=== PATIENT | female | born 1995 | race Asian ===

== ENCOUNTER → 2021-03-02 16:12 | Outpatient (CLI) | payer OTHER, MEDICAID, SELFPAY | PROVIDERS: Referring Provider Obstetrics & Gynecology; Visit Provider Obstetrics & Gynecology | DX: Z34.82 Encounter for supervision of other normal pregnancy, second trimester (principal) | CPT/HCPCS: 36415; 86850 ==

== ENCOUNTER → 2021-04-04 15:53 | Outpatient (CLI) | payer OTHER, MEDICAID, SELFPAY ==
--- NOTE | 2021-04-04 15:54 | DI.US.S_ITS ---
PROCEDURE: US OB >= 14 WEEKS FETUS INDICATIONS: ANATOMY SCAN. OUTSIDE/PRIOR DATING DATA: Last menstrual period (LMP): Not known LMP-based estimated date of delivery (HDEERAJ): Not known. First dating scan (date and location): 02/13/2021. Estimated date of delivery (DHEERAJ) from first dating scan: 08/16/2021. TECHNIQUE: Real-time scanning was performed of the fetus, with image documentation and biometric measurements. COMPARISON: , , OB < 14 WEEKS, 02/13/2021, 17:58. FINDINGS: General: A single living intrauterine gestation is present. Presentation: Variable Placenta: Placental position is anterior, without previa. Amniotic fluid index: 12.9 cm, normal range is 5-24 cm. heart rate: 147 beats per minute. Maternal cervical canal: 4.6 cm long. Normal lower limit is 2.5 cm. biometrics: Biparietal diameter: 4.8 cm, 20 weeks, 4 days Head circumference: 18 cm, 20 weeks, 4 days Abdominal circumference: 15.6 cm, 20 weeks, 5 days Femur length: 3.4 cm, 20 weeks, 5 days Estimated gestational age from initial scan: 20 weeks, 6 days Composite gestational age from present scan: 20 weeks, 4 days Estimated weight and percentile: 369 gram, 35 percent Measurement variability for biometric dating: +/- 7 days from 14 weeks to 15 weeks 6 days gestation, +/- 10 days from 16 weeks to 21 weeks 6 days gestation, +/- 2 weeks from 22 weeks to 27 weeks 6 days gestation, +/- 3 weeks for 28 weeks gestation or later. weight reference: 4500 g or EFW >90/95% is considered macrosomia or large for gestational age. EFW <10% is small for gestational age. EFW 5% or less is considered intra-uterine growth restriction. Anatomic survey: Neuro: Ventricles are non-dilated at less than 10 mm. Cisterna magna is normal at 3-11 mm. Cerebellum is normal in size and morphology. Nuchal skin fold: Normal at less than 6 mm between 14-21 weeks gestational age. Face: Nose and lips, facial profile are normal. Spine: No evidence for spina bifida. Heart: 4-chambered heart is present, with normal ventricular outflow tracts. Diaphragm: Diaphragm is intact. Stomach: Left-sided stomach is present. Kidneys: No hydronephrosis. Normal is less than 5 mm in 2nd trimester, less than 7 mm in 3rd trimester. Cord: 3-vessel cord has orthotopic insertion. Bladder: Normal in size. Extremities: All 4 extremities identified. IMPRESSION: 1. Single live intrauterine with fetus in variable presentation. heart rate is 147 beats per minute. Normal amount of amniotic fluid. Normal growth. Estimated weight is at 35 percent. 2. Normal anatomic survey. Dictated by: Navneet Farfan M.D. on 04/04/2021 at 17:44 Approved by: Navneet Farfan M.D. on 04/04/2021 at 17:47
== END ==
PROVIDERS: Referring Provider Obstetrics & Gynecology; Visit Provider Obstetrics & Gynecology
DX: Z34.90 Encounter for supervision of normal pregnancy, unspecified, unspecified trimester (principal); Z3A.20 20 weeks gestation of pregnancy
CPT/HCPCS: 76811

== ENCOUNTER → 2021-05-16 13:30 | Outpatient (CLI) | payer OTHER, MEDICAID, SELFPAY ==
[2021-05-16 15:31] LABS: Hematocrit 34.5 % (36-46); Hemoglobin 11.6 g/dL (12.0-16.0)
[2021-05-16 17:10] LABS: GTT (PREG) 1 Hour PP 50gm Dose 114 mg/dL (76-139)
== END ==
PROVIDERS: Referring Provider Obstetrics & Gynecology; Visit Provider Obstetrics & Gynecology
DX: Z34.82 Encounter for supervision of other normal pregnancy, second trimester (principal); Z3A.25 25 weeks gestation of pregnancy
CPT/HCPCS: 36415; 82950; 85014; 85018

== ENCOUNTER → 2021-07-20 16:16 | Outpatient (CLI) | payer OTHER, MEDICAID, SELFPAY ==
[2021-07-21 18:28] LABS: Strep Grp B PCR NEG for Grp B Strep
== END ==
PROVIDERS: Visit Provider Obstetrics & Gynecology
DX: Z34.03 Encounter for supervision of normal first pregnancy, third trimester (principal); Z3A.36 36 weeks gestation of pregnancy
CPT/HCPCS: 87653

== ENCOUNTER → 2021-07-30 14:12 | Outpatient (CLI) | payer OTHER, MEDICAID, SELFPAY ==
[2021-07-30 14:40] LABS: COVID19 -Nasal RAPID Negative (Negative)
== END ==
PROVIDERS: Referring Provider Physician Assistant; Visit Provider Physician Assistant
DX: Z20.822 Contact with and (suspected) exposure to COVID-19 (principal)
CPT/HCPCS: 87635

== ENCOUNTER 2021-08-11 20:36 | Inpatient (IN) | payer OTHER, MEDICAID, SELFPAY ==
[2021-08-11 20:59] VITALS: BP 125/72
--- NOTE | 2021-08-11 21:34 | PM.OBHP.1 ---
OB HPI Date/Time Date of admission: 08/11/21 Date Patient Seen: 08/11/21 Time Patient Seen: 21:40 History of Present Condition Chief complaint: OBSERVATION : 2 Para: 1 Estimated Date of Delivery: 08/16/21 Estimated Gestational Age (weeks): 39+2 Narrative: Vernell Cantrell is a 26 year old DHEERAJ 08/16/2021 at 39+ 2 weeks gestational age who presents this evening with spontaneous rupture membranes at 6:00 p.m. She has a history of prior section and is scheduled for repeat section on08/16/2021. Her course is largely been uneventful but she has a history of gestational hypertension with her 1st . She is normotensive now and has been throughout her . Patient is GBS negative. Patient declined genetic testing and quad screen. Initial antibody screen at [facility] was positive for an unidentifiable antibody but subsequent testing showed no antibody was present. Last p.o. intake was at 5:00 p.m. consisting of half piece of pizza and some water. Her placenta is reported to be anterior without previa. Indications Operative indications ( section): previous uterine surgery History of Present care: good care Dating criteria: LMP confirmed by 1st trimester US Ultrasounds: normal 1st trimester US and normal mid trimester US Obstetrical complications: none Medical complications: none Preadmission Labs Blood type: B (+) positive -: Antibody screen: negative, GBS status: negative, HBsAG: negative, HIV: negative and RPR/VDLR: negative -: Chlamydia screen: not detected and Gonorrhea screen: not detected -: Rubella: immune and Varicella: immune HCT: 34.5 HCAB: negative PAP: Normal Cell-free DNA: Declined 1 hr GTT: 114 Prior (ies) History: Prior , history of gestational hypertension with 1st Evaluation Evaluation Baseline heart rate: 125 Variability: Moderate (11-25) monitor accelerations: Present Monitor Decelerations: Absent Category of Tracing: Reactive Status: Category l Non-invasive Membranes Rupture Test: positive Comments: Cervix not evaluated [facility] Medical History Carpal tunnel syndrome of right wrist Gestational hypertension affecting first (~2019) History of gestational hypertension UTI (urinary tract infection) Surgical History History of delivery, currently [employer] [place] teeth extracted (~10/2020) Family History Mother Hypertension Father Cancer Hypertension Grandmother Diabetes mellitus Hypertension Grandfather Lung cancer Smoker Grandmother Medical history unknown Grandfather Medical history unknown Social History marital status: number of children: 1 household members: spouse and children lives independently: Yes caregiver/support person: No housing: house pets and animals: Yes (2 big dogs: safe.) 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 ) special brittany needs: No seatbelt use: always do you feel safe at home: Yes Smoking Status: Never smoker second hand exposure: No alcohol intake: never substance use type: does not use during the past year weight has: remained stable well-balanced diet: daily or most days daily servings fruits/ve-4 (2+) caffeine: Yes (Coffee, 1 cup daily. Trying to switch to matcha. ) Type(s) of exercise: normal ROM and activity (Very busy, always outside moving, busy toddler, working.) frequency: daily duration: other Meds Home Medications and Allergies Home Medications Medication Instructions Recorded Confirmed Type prenat.vits,yaron,jet-[id number] 1 tab PO DAILY 03/02/21 08/11/21 History Allergies Allergy/AdvReac Type Severity Reaction Status Date / Time No Known Drug Allergies Allergy Verified 03/02/21 10:10 Review of Systems Review of Systems Narrative: Problem-specific ROS positives included in HPI OB Exam HENMT Head: normal to inspection Mouth: oral mucosae normal Eyes General: appearance normal, both eyes and all related structures Resp Effort & Inspection: normal respiratory effort and able to speak in complete sentences Auscultation: clear to auscultation bilaterally Cardio Rate: regular rate Rhythm: regular rhythm Heart Sounds: S1 normal, S2 normal and no murmurs GI Inspection: normal to inspection and other (Gravid) Palpation: soft and no hepatosplenomegaly External Female Exam: Yes normal external appearance Uterus Location (Fundal Height): 36 Presentation: vertex Estimated Weight (lbs): 8 Amniotic Fluid: clear Assessment and Plan Assessment and Plan Assessment and Plan narrative: ASSESSMENT 1. Intrauterine gestation, Donald, vertex, 39+ 2 weeks gestational age 2. History of prior section for repeat delivery PLAN 1. Admit for repeat section 2. See admission orders 3. Patient counseled regarding alternatives, risks, benefits, and potential complications associated with repeat section. With full understanding of the above, a written consent was executed, signed, and witnessed this date. Time Spent with Patient Total time spent with greater than 50% in coordination of care (as documented) at patient's floor/unit and/or counseling patient:: 15-24 minutes
[2021-08-11 21:49] LABS: COVID19 -Nasal RAPID Negative (Negative)
[2021-08-11 22:11] LABS: Add Manual Diff / Slide Review NO; Basophils Absolute Auto 0 /uL (0-100); Basophils Percent Auto 0.3 % (0-2); Eosinophils Absolute Auto 100 /uL (0-450); Eosinophils Percent Auto 0.6 % (2-4); Hematocrit 38.8 % (36-46); Hemoglobin 12.9 g/dL (12.0-16.0); Lymphocytes Absolute Auto 2400 /uL (1100-4500); Lymphocytes Percent Auto 19.2 % (25-40); Mean Corpuscular HGB Conc 33.1 % (30-36); Mean Corpuscular Hemoglobin 28.8 PG (26-34); Mean Corpuscular Volume 86.9 fL (80-100); Monocytes Absolute Auto 900 /uL (0-900); Neutrophils Absolute Auto 8900 /uL (1500-7000); Neutrophils Percent Auto 72.9 % (50-75); Platelet Count 343 X10^3/uL (150-400); Red Blood Cell Count 4.46 X10^6/uL (4.0-5.2); White Blood Cell Count 12.3 X10^3/uL (4.5-11.0)
--- NOTE | 2021-08-11 22:31 | PM.PREOP ---
Pre-operative Note COVID-19 COVID-19 status: Negative Result date/Date tested (Pos, Neg/Pending): 08/11/21 Criteria for continued procedure: Non-surgical alternatives not available or appropriate per current SOC Interval Note History & Physical reviewed/Exam performed by Physician: Yes Changes to H&P: No
--- NOTE | 2021-08-11 22:35 | PM.OBCS.1 ---
Operative Date/Time/Diagnoses Date of procedure: 08/11/21 Time of procedure: 23:00 Pre-op diagnosis: Intrauterine , 39+2 weeks EGA Prior section PROM Post-op diagnosis: same Procedure & Clinicians Procedure: Repeat section (Low Transverse Cervical) Same procedure as scheduled: Yes Indications: Vernell Cantrell is a 26 year old DHEERAJ 08/16/2021 at 39+ 2 weeks gestational age who presents this evening with spontaneous rupture membranes at 6:00 p.m. She has a history of prior section and is scheduled for repeat section on08/16/2021.? Her course is largely been uneventful but she has a history of gestational hypertension with her 1st .? She is normotensive now and has been throughout her .? Patient is GBS negative.? Patient declined genetic testing and quad screen.? Initial antibody screen at [facility] was positive for an unidentifiable antibody but subsequent testing showed no antibody was present.? Last p.o. intake was at 5:00 p.m. consisting of half piece of pizza and some water.? Her placenta is reported to be anterior without previa. Surgeon: Colby Woods Local Hazmat Driver: Mateusz Chi Reason for Local Hazmat Driver: Local Hazmat Driver required for retraction and the the safe, timely performance of the surgery Anesthesia Type: Spinal Operative Notes Findings: Viable , Apgars / , BW Closure Type: primary Specimen(s): cord blood Intraoperative meds administered: Pitocin Applied: Catheter Estimated Blood Loss (mL): 800 Blood products transfused: none Procedure in detail: With the patient under satisfactory spinal block anesthesia in the dorsal supine position, the abdomen was prepped and draped in the usual fashion for after placement of a Carrasco catheter. Pre-surgical safety time-out then taken in accordance with [facility] OR protocols. Once adequate spinal anesthesia was assured, the old Pfannenstiel scar was excised as a cicatrix and the dissection carried through the subcutaneous tissues to the fascia which was incised transversely. The fascia was then undermined cephalad and caudad with the rectus abdomini both bluntly and sharply. The abdomen was entered sharply with Metzenbaum scissors and the lower uterine segment exposed. A bladder flap was then created with that transverse incision using Metzenbaum scissors and the bladder was mobilized downward. Hysterotomy was then performed sharply and the amniotic cavity entered atraumatically. The incision was extended with digital traction and the male , Apgars 9/9, BW 3617 gms. (7# 15.6 oz.), delivered from the vertex presentation without difficulty. Cord around the neck x1 was noted. Delayed cord clamping was performed and after 60 seconds the cord was clamped and cut with cord blood submitted for routine studies. The placenta was removed with gentle cord traction and massage of the fundus. Placenta was intact and the endometrial cavity was empty as demonstrated by expiration with wet lap. The uterine incision was then closed with #1 chromic catgut suture in a running interlocking stitch followed by a 2nd layer of #1 Chromic in a running interlocking imbricating stitch. Hemostasis was excellent and uterus was firm with the administration of IV Pitocin. The anterior peritoneum was then closed with 2-0 Vicryl in a running stitch and the fascia was closed with #1 Vicryl in a running stitch initiated at both angles and tying separately near the midline. The subcutaneous tissues were then reapproximated with 2-0 Vicryl in a running stitch and the skin edges were brought together with 4-0 Monocryl using a subcuticular closure. Steri-Strips were applied followed by placement of an Aquasol dressing. Patient was then transferred to the PACU for a period of recovery having tolerated the procedure well. Complications: none Baby 1: Infant Gender: Male Presentation: vertex Position: Left Occiput Anterior Placental Delivery Description: Expressed Cord Vessel Description: 3 Vessels score (1 min): 9 score (5 min): 9 weight: 7 lb 15.586 oz Post-operative Condition: stable Disposition: PACU Aftercare: routine postop
[2021-08-11] MEDS: CEFAZOLIN 2 GM/20 ML SYRINGE IV (22:56)
--- NOTE | 2021-08-11 23:01 | SUR.OPER ---
Supine on Padded OR bed, head on pillow, safety belt at thigh, arms secured on padded arm boards at <90 degrees abduction. Bump under right buttock. Legs uncrossed with pillow under knees, gel pad to heels, tape over blanket to lower legs.
--- NOTE | 2021-08-11 23:05 | SUR.OPER ---
FHT's 154. Cord blood x 2 and placenta to OB with OB RN.
[2021-08-11] MEDS: LACTATED RINGERS 1,000 ML 100 ML IV (23:12)
--- NOTE | 2021-08-11 23:19 | SUR.OPER ---
TOB live male @ [id number].
--- NOTE | 2021-08-11 23:28 | SUR.OPER ---
All intra-op charting done by Alesia Killian RN. Could not log on to the computer. Janis Nava RN present during entire surgery.
[2021-08-12 00:06] VITALS: BP 116/64; PULSE 75; RESP 16; TEMP 36.6; O2SAT 96
[2021-08-12 00:11] VITALS: BP 113/63; PULSE 75; RESP 16; O2SAT 96
[2021-08-12 00:16] VITALS: BP 108/54; PULSE 71; RESP 16; TEMP 36.3; O2SAT 97
[2021-08-12 00:23] VITALS: BP 99/54; PULSE 79; RESP 16; O2SAT 97
[2021-08-12] MEDS: ONDANSETRON 8 MG in SODIUM CHLORIDE 0.9% 100 ML 208 MG IV (01:26)
[2021-08-12] MEDS: OXYTOCIN PREMIX 30 UNIT/500 ML PLAST..BAG 200 UNIT IV (01:29)
[2021-08-12] MEDS: LACTATED RINGERS 1,000 ML 100 ML IV (01:29)
[2021-08-12] MEDS: KETOROLAC 30 MG/ML VIAL IV ×3 (04:29→16:56)
[2021-08-12 07:56] LABS: Add Manual Diff / Slide Review NO; Basophils Absolute Auto 100 /uL (0-100); Basophils Percent Auto 0.3 % (0-2); Eosinophils Absolute Auto 0 /uL (0-450); Eosinophils Percent Auto 0.1 % (2-4); Hematocrit 33.9 % (36-46); Hemoglobin 11.1 g/dL (12.0-16.0); Lymphocytes Absolute Auto 1500 /uL (1100-4500); Lymphocytes Percent Auto 7.7 % (25-40); Mean Corpuscular HGB Conc 32.9 % (30-36); Mean Corpuscular Hemoglobin 28.2 PG (26-34); Mean Corpuscular Volume 85.6 fL (80-100); Monocytes Absolute Auto 1000 /uL (0-900); Monocytes Percent Auto 4.8 % (3-14); Neutrophils Absolute Auto 17500 /uL (1500-7000); Neutrophils Percent Auto 87.1 % (50-75); Platelet Count 339 X10^3/uL (150-400); Red Blood Cell Count 3.95 X10^6/uL (4.0-5.2); Red Cell Distribution Width 12.6 % (11.6-14.8); White Blood Cell Count 20.1 X10^3/uL (4.5-11.0)
[2021-08-12] MEDS: METOCLOPRAMIDE 10 MG/2 ML INJ IV (08:00)
--- NOTE | 2021-08-12 11:50 | P.PNOB_ITS ---
Subjective - OB Subjective Patient comments: no complaints, pain well controlled, tolerating diet and other (Moderate nausea relieved with Reglan; Zofran ineffective); no flatus present [place] baby status: doing well [place] feeding status: exclusively breast feeding Date Patient Seen: 08/12/21 Time Patient Seen: 11:51 Interval history: Overnight following her , the patient has done extremely well but did have significant nausea and vomiting initially unrelieved with Zofran. She is now doing much better, is ambulating independently, voiding without difficulty, and tolerating a reasonable amount of food/liquids PO. Exam Vital Signs (past 8 hours): Oxygen Delivery Method Room Air Const General: cooperative and comfortable Nutritional Appearance: average body habitus Orientation: alert and oriented x3 HENMT Head: normal to inspection Eyes General: appearance normal, both eyes and all related structures Neck Neck: normal visual inspection Resp Effort & Inspection: normal respiratory effort and able to speak in complete sentences Auscultation: clear to auscultation bilaterally Cardio Rate: regular rate Rhythm: regular rhythm Heart Sounds: S1 normal, S2 normal and no murmurs GI Inspection: normal to inspection and incision (Dressing clean and dry) Palpation: soft, no hepatosplenomegaly, mass (Fundus U -2) and tender (Mild, diffuse, normal/expected postsurgical tenderness) Auscultation: normal bowel sounds Extrem General: normal to inspection and no calf tenderness Psych Appearance: grossly normal Mental Status: mental status grossly normal Speech and Movement: speech and movement normal Mood: congruent mood Affect: normal affect Attitude: cooperative Thought Process: normal Thought Content: normal Judgment: judgment good Objective Labs Result Diagrams: 08/12/21 07:45 Labs: Laboratory Results - last 24 hr 08/11/21 08/11/21 08/11/21 21:30 21:45 21:45 WBC 12.3 H RBC 4.46 Hgb 12.9 Hct 38.8 MCV 86.9 MCH 28.8 MCHC 33.1 RDW 13.0 Plt Count 343 Neut % (Auto) 72.9 Lymph % (Auto) 19.2 L [place] % (Auto) 7.0 Eos % (Auto) 0.6 L Baso % (Auto) 0.3 Neut # (Auto) 8900 H Lymph # (Auto) 2400 [place] # (Auto) 900 Eos # (Auto) 100 Baso # (Auto) 0 SARS-CoV-2 (PCR) Negative Blood Type B Positive Antibody Screen Negative 08/12/21 07:45 WBC 20.1 H D RBC 3.95 L Hgb 11.1 L Hct 33.9 L MCV 85.6 MCH 28.2 MCHC 32.9 RDW 12.6 Plt Count 339 Neut % (Auto) 87.1 H Lymph % (Auto) 7.7 L [place] % (Auto) 4.8 Eos % (Auto) 0.1 L Baso % (Auto) 0.3 Neut # (Auto) 61520 H Lymph # (Auto) 1500 [place] # (Auto) 1000 H Eos # (Auto) 0 Baso # (Auto) 100 SARS-CoV-2 (PCR) Blood Type Antibody Screen Assessment & Plan Plan day: 1 plan OB: routine postop care Time Spent With Patient Time: Total time spent is greater than 50% in coordination of care (as documented) at patient's floor/unit and/or counseling patient: Time with patient: less than 15 minutes
[2021-08-12] MEDS: IBUPROFEN 600 MG TABLET PO (23:47)
[2021-08-13 07:00] VITALS: BP 111/64; PULSE 80; RESP 17; TEMP 36.7
--- NOTE | 2021-08-13 07:53 | PM.DS.1 ---
History of Present Illness History of Present Illness Date Patient Seen: 08/13/21 Time Patient Seen: 07:50 Chief complaint: maternity Discharge Providers Provider Date of admission: 08/11/21 20:36 Discharge Date: 08/13/21 Primary care physician: Doctor Russ MD Consults: 08/12/21 00:24 Consult to Pricing Consultant Routine Comment: Discharge provider: Colby Woods MD Summary Hospital Course Discharge Diagnosis: S/P Repeat Section Hospital Course: On the evening of 08/11/2021, the patient experienced spontaneous rupture membranes and presented to the [facility] for evaluation. After confirmation of SROM, the patient underwent a repeat section by a low transverse cervical incision productive of a male with Apgars of 9 and 9 and a weight of 7 lb 15.6 oz.. Details of the procedure itself are well summarized in my dictated operative note of that date. Following delivery the patient has done extremely well with prompt return of bowel bladder function, she is ambulating independently, tolerating regular diet, and her pain is well controlled with oral medications. She will be discharged at this time to home with medications to include Percocet 1q 4 hours as needed pain dispense 20 with no refills, ibuprofen 600 mg p.o. q.6 hours as needed pain, dispensed 60 with 2 refills, and Colace 200 mg p.o. q.d.. Prior to discharge the patient was counseled regarding precautionary symptoms, limitations of activity, medications, and follow-up which will be in 1 week for incision check at which time we will discuss contraception. Status at Discharge Cognitive/behavioral status at discharge: oriented Functional status at discharge: independent ambulation Overall status at discharge: patient is progressing back to baseline Exam Vital Signs (past 8 hours): Oxygen Delivery Method Room Air Const General: cooperative and comfortable Nutritional Appearance: average body habitus Orientation: alert and oriented x3 HENMT Head: normal to inspection Eyes General: appearance normal, both eyes and all related structures Neck Neck: normal visual inspection Resp Effort & Inspection: normal respiratory effort and able to speak in complete sentences Auscultation: clear to auscultation bilaterally Cardio Rate: regular rate Rhythm: regular rhythm Heart Sounds: S1 normal, S2 normal and no murmurs GI Inspection: normal to inspection and incision (Dressing clean and dry without staining) Palpation: soft, no hepatosplenomegaly and mass (Fundus firm, nontender, U -4 cm) External Female Exam: other (Deferred) Skin General: no rashes or lesions noted Extrem General: normal to inspection and no calf tenderness Psych Appearance: grossly normal Mental Status: mental status grossly normal Speech and Movement: speech and movement normal Mood: congruent mood Affect: normal affect Attitude: cooperative Thought Process: normal Thought Content: normal Judgment: judgment good Objective Labs Result Diagrams: 08/12/21 07:45 Labs: Laboratory Results - last 24 hr 08/12/21 07:45 WBC 20.1 H D RBC 3.95 L Hgb 11.1 L Hct 33.9 L MCV 85.6 MCH 28.2 MCHC 32.9 RDW 12.6 Plt Count 339 Neut % (Auto) 87.1 H Lymph % (Auto) 7.7 L [place] % (Auto) 4.8 Eos % (Auto) 0.1 L Baso % (Auto) 0.3 Neut # (Auto) 94906 H Lymph # (Auto) 1500 [place] # (Auto) 1000 H Eos # (Auto) 0 Baso # (Auto) 100 PFSH Medical History Carpal tunnel syndrome of right wrist Gestational hypertension affecting first (~2019) History of gestational hypertension UTI (urinary tract infection) Surgical History History of delivery, currently [place] teeth extracted (~10/2020) Family History Mother Hypertension Father Cancer Hypertension Grandmother Diabetes mellitus Hypertension Grandfather Lung cancer Smoker Grandmother Medical history unknown Grandfather Medical history unknown Social History marital status: number of children: 1 household members: spouse and children lives independently: Yes caregiver/support person: No housing: house pets and animals: Yes (2 big dogs: safe.) education level: vocational (Licensed [employer]) occupational status: employed (at [employer] current occupational exposures/hazards: Yes (Cleaning supplies, 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 ) special brittany needs: No seatbelt use: always do you feel safe at home: Yes Smoking Status: Never smoker second hand exposure: No alcohol intake: never substance use type: does not use during the past year weight has: remained stable well-balanced diet: daily or most days daily servings fruits/ve-4 (2+) caffeine: Yes (Coffee, 1 cup daily. Trying to switch to matcha. ) Type(s) of exercise: normal ROM and activity (Very busy, always outside moving, busy toddler, working.) frequency: daily duration: other Discharge Assessment & Plan Assessment and Plan Assessment: Status post repeat section following SROM at term Plan of Treatment: Routine postoperative care with follow-up incision check in 1 week. Discharge Plan Discharge Plan Patient Disposition: Home Provider Discharge Comment: Please review the written instructions he received at the time of discharge. Your follow-up appointment will be scheduled for 1 week to examine your incision and remove the dressing. If however you have any issues, concerns, or problems in the meanwhile, please feel free to contact me through the office phone, or via the patient portal Discharge orders & Medications Prescriptions: New docusate sodium 100 mg Capsule 200 mg PO DAILY Qty: 30 0RF ibuprofen 600 mg Tablet 600 mg PO Q6H PRN (Reason: Fever/Mild Pain (1-3)) Qty: 60 2RF oxycodone-acetaminophen [Percocet] 5-325 mg tablet 1 tab PO Q4-6H PRN (Reason: pain) 5 Days Qty: 20 0RF Continued prenat.vits,yaron,[id number] Tablet 1 tab PO DAILY 0RF Follow up/Referrals: Doctor Solano MD [Primary Care Provider] - Discharge Health Status Multidrug resistant organism: No MDRO Skin/Wound/Dressing Care Dressing: Dressing will be removed at the time of your 1 week visit Visit Report/Discharge Packet Instructions: DI for , DI for and Nipple Soreness, DI for Prescription Opioid Use Discharge Data Primary Care Provider: Doctor Russ
[2021-08-13] MEDS: DOCUSATE 100 MG CAPSULE 200 MG PO (08:06)
[2021-08-13] MEDS: PRENATAL VIT,CALC/IRON/FOLIC 1 TABLET 1 TAB PO (08:07)
[2021-08-13] MEDS: IBUPROFEN 600 MG TABLET PO (08:07)
[2021-08-13] MEDS: ACETAMINOPHEN 325 MG TABLET 650 MG PO (08:08)
[2021-08-13 10:45] VITALS: TEMP 36.7
[2021-08-13] MEDS: OXYCODONE IR 5 MG TABLET PO (10:45)
== END 2021-08-13 11:07 | disposition home or self-care (01) | DRG 540 ==
PROVIDERS: Admitting Provider Obstetrics & Gynecology; Referring Provider Obstetrics & Gynecology; Visit Provider Obstetrics & Gynecology
PROC: 10D00Z1 Extraction of Products of Conception, Low, Open Approach (ICD-10-PCS; CPT 59514; principal; 2021-08-11 22:00)
DX: O34.211 Maternal care for low transverse scar from previous cesarean delivery (principal); Z3A.39 39 weeks gestation of pregnancy; Z37.0 Single live birth; O69.81X0 Labor and delivery complicated by cord around neck, without compression, not applicable or unspecified; Z20.822 Contact with and (suspected) exposure to COVID-19
CPT/HCPCS: 36415; 59514; 85025; 86850; 86900; 86901; 87635; C9803; G0379; J0690; J1885; J2274; J2405; J2590; J2704; J2765; J3010